=== PATIENT | male | born 1975 | race Caucasian/White ===

== ENCOUNTER 2019-11-20 08:00 | Day surgery (SDC) | payer OTHER ==
[~2019-11-20 08:00] MED LIST: cefTRIAXone 2 GM VIAL ONE
[2019-11-20] MEDS ORDERED: BUPIVACAINE 0.25% PF 30 ML VIAL ONE (08:19)
[2019-11-20] MEDS ORDERED: EPINEPHrine 1 MG/ML AMP ONE (08:19)
[2019-11-20] MEDS ORDERED: LACTATED RINGERS 1,000 ML IV ONE ×2 (08:35→14:17)
--- NOTE | 2019-11-20 08:42 | ANESTHESIA ---
Pre-Anesthesia VS, & Labs - Diagnosis right rotator cuff tear, AC joint arthritis - Procedure right shoulder arthroscopy, rotator cuff debridement vs repair, open distal clavicle, open biceps tenodesis Vital Signs: Temp Pulse Resp BP Pulse Ox 35.8 C L 66 18 128/96 H 99 11/20/19 08:10 11/20/19 08:10 11/20/19 08:10 11/20/19 08:10 11/20/19 08:10 Height 6 ft Weight (kg) 89.81 kg - NPO >8 hours Home Medications and Allergies Home Medications: Ambulatory Orders Escitalopram [Lexapro] 10 mg PO DAILY 11/16/19 Methylphenidate HCl [Concerta] 36 mg PO DAILY 11/16/19 Loratadine [Claritin] 10 mg PO DAILY 11/20/19 Escitalopram [Lexapro] 10 mg PO DAILY 11/16/19 Methylphenidate HCl [Concerta] 36 mg PO DAILY 11/16/19 Loratadine [Claritin] 10 mg PO DAILY 11/20/19 Allergies/Adverse Reactions: Allergies Allergy/AdvReac Type Severity Reaction Status Date / Time iodine Allergy Hives Verified 11/16/19 15:51 Anes History & Medical History - Anesthetic History Anesthesia Complications: reports: No previous complications - Medical History Cardiovascular: reports: None Pulmonary: reports: Sleep apnea, CPAP use (Uses every night) Gastrointestinal: reports: None Urinary: reports: None Neuro: reports: None Musculoskeletal: reports: Other Endocrine/Autoimmune: reports: None Blood Disorders: reports: None Skin: reports: None Smoking Status: Former smoker (quit 1 year ago.) Psychosocial: reports: Alcohol (alcoholism, quit 3 yrs ago.) - Surgical History General: Other ([facility]) Orthopedic: Shoulder arthroplasty (distal biceps left arm, left clavicle fixation) Exam General: Alert, Oriented x3, Cooperative Dental: WNL, Other (prominent incisors) Mouth Openin Fingerbreadth Neck Mobility: Normal Mallampati classification: I Thyromental Distance: 4-6 cm Respiratory: Lungs clear, Normal breath sounds, No respiratory distress, No accessory muscle use Cardiovascular: Regular rate, Normal S1, Normal S2, No murmurs Mental/Cognitive Status: Alert/Oriented X3, Normal for patient Plan Anesthesia Type: General, Interscalene Block (Right) Regional Block: Per Surgeon's request for Post Op pain control Consent for Procedure(s) Verified and Reviewed: Yes Code Status: Attempt Resuscitation ASA classification: 2-Mild systemic disease Is this case an emergency?: No
[2019-11-20] MEDS ORDERED: ROCURONIUM 50 MG/5 ML VIAL IVP ONE (09:30)
[2019-11-20] MEDS ORDERED: LIDOCAINE-MPF 2% 5 ML VIAL IM ONE (09:30)
[2019-11-20] MEDS ORDERED: ONDANSETRON 4 MG/2 ML VIAL IVP ONE (09:30)
[2019-11-20] MEDS ORDERED: MIDAZOLAM 2 MG/2 ML VIAL IVP ONE (09:30)
[2019-11-20] MEDS ORDERED: PROPOFOL 200 MG/20 ML VIAL IVP ONE (09:30)
[2019-11-20] MEDS ORDERED: fentaNYL 100 MCG/2 ML VIAL IVP ONE (09:30)
[2019-11-20] MEDS ORDERED: BUPIVACAINE 0.25% PF 30 ML VIAL SUBQ ONE (11:07)
[2019-11-20] MEDS ORDERED: KETOROLAC 30 MG/ML VIAL ONE (14:50)
[2019-11-20] MEDS ORDERED: ONDANSETRON 4 MG/2 ML VIAL ONE (14:51)
--- NOTE | 2019-11-20 14:54 | IMMEDIATE POSTOPERATIVE NOTE ---
Immediate Postoperative Note - Procedure Note Procedure Date: 11/20/19 Pre-Op Diagnosis: Right shoulder SLAP tear, Cuff Tear, AC joint arthritis Procedure: Right shoulder arthroscopy, SLAP debridement, subacromial decompression, rotator cuff repair, open biceps tenodesis, open distal clavicle excision Post-Op Diagnosis: Right shoulder SLAP tear, Cuff Tear, AC joint arthritis Primary Surgeon: CULLEN HENDERSON Aging Box Hand: MAHAD LEMUS Anesthesia Type: General ET tube, Regional block Findings: Type II SLAP tear, anterior full thickness rotator cuff tear, subacromial bursitis, AC joint arthritis Complications: No complications Estimated Blood Loss (in cc): 50 Drains, Catheters, Devices: None Specimens and Cultures: None Plan of Care: Discharge from [facility] when criteria met Start pendulums POD#1, otherwise arm in sling or resting in lap F/U 7-10 days Start PT at first F/U
[2019-11-20] MEDS ORDERED: oxyCODONE 5 MG TABLET PO PRN (14:56)
[2019-11-20] MEDS ORDERED: ONDANSETRON 4 MG/2 ML VIAL IVP PRN (14:56)
[2019-11-20 16:54] VITALS: BP 164/86
--- NOTE | 2019-11-20 17:36 | OPERATIVE REPORT ---
Operative Report - Other Other Information/Narrative: Date of Procedure: 20 November 2019 Planned Procedure: Right shoulder arthroscopy, subacromial decompression, rotator cuff debridement versus repair, SLAP debridement and open subpectoral biceps tenodesis, open distal clavicle excision Pre-op diagnosis: Right shoulder rotator cuff tendinitis and likely full- thickness anterior rotator cuff tear, SLAP tear, AC joint arthritis Procedure performed: Right shoulder arthroscopy, subacromial decompression, rotator cuff repair, SLAP debridement and open subpectoral biceps tenodesis, open distal clavicle excision Post-op diagnosis: Right shoulder subacromial bursitis, anterior rotator cuff tendon tear (full-thickness), type II SLAP tear, AC joint arthritis Primary Surgeon: CULLEN HENDERSON Secondary Surgeon: MAHAD LEMUS Anesthesia: General endotracheal anesthesia with regional block EBL: 50 ml Tourniquet: Not applicable DETAILED PROCEDURE: IMPLANTS: Arthrex 5.5 mm corkscrew x1, Arthrex 4.75 mm swivel lock x1, Arthrex fiber tack x1 POSTOPERATIVE PLAN: 0-2 weeks-Sling at all times. Pendulum exercises 5 times per day. 2-6 weeks-Passive range of motion with the following limits: FF to 90, ER to 45, abduction to 90 6-12 weeks-Active range of motion in all planes without limitation. Isometric rotator cuff strengthening is allowed 12-16 weeks-Gradually increase strengthening 16 weeks and beyond-Introduce dynamic activities EXAMINATION UNDER ANESTHESIA: ROM: Forward flexion 180 degrees, abduction 180 degrees, external rotation 60 degrees. AB ER 90 degrees AB IR 85 degrees Anterior load and shift: 1+ Posterior load and shift: 1+ Inferior sulcus: Negative ARTHROSCOPIC FINDINGS: Rotator interval: Fraying and tearing within the rotator interval, this tear progressed posteriorly into the anterior portion of the supraspinatus tendon Biceps tendon & SLAP: Type II SLAP lesion Subscapularis: Superior border intact with some yefri-insertional fraying Rotator Cuff: Full-thickness tear anterior portion of the supraspinatus with extension into the rotator interval as above. The infraspinatus appeared intact. There is a small partial articular sided supraspinatus tear seen from within the joint, with about 5 mm of retraction from the chondral surface HAGL: None Labrum: Some degenerative fraying anteriorly, but otherwise intact Glenoid Cartilage: Overall normal Humeral Head Cartilage: Overall normal INDICATION FOR SURGERY: 44-year-old [id number] male with approximately 1-1/2 years of atraumatic right shoulder pain. MRI and exam consistent with partial to full-thickness anterior rotator cuff tear, SLAP tear, and AC joint arthritis. Nonoperative managment failed to resolve symptoms. The risks, benefits, and alternatives were discussed. Risks included pain, bleeding, infection, damage to nearby structures, lack of symptom relief, implant complications, stiffness, need for further surgeries, DVT, PE, stroke, and even . He signed a written consent form. PROCEDURE IN DETAIL: The patient was met in the preoperative holding on the day of the procedure. Operative extremity was signed. Consent was verified. He desired to proceed. Regional anesthesia was obtained in the preoperative area. They were brought to the operating room and surrendered to anesthesia. Once general anesthesia was obtained they were placed in the lateral decubitus position with the operative side up. An axillary roll was placed and all bony prominences were well-padded. They were then prepped and draped in the standard sterile fashion. A surgical timeout was held to confirm the patient procedure, identity, procedure, laterality, allergies, images, and antibiotics. All were in agreement we proceeded. Balanced suspension was applied and a standard diagnostic arthroscopy was performed utilizing posterior and anterosuperolateral portal sites. The ASL portal site was created under direct visualization. The findings of the diagnostic arthroscopy can be found above. The biceps tendon was cut with a biter, and the remnant tissue was debrided back to the superior labrum using the arthroscopic sucker shaver. Any loose labral tissue was debrided from the SLAP tear. The area of torn rotator cuff tissue was marked with an 0 PDS through percutaneous spinal needle. The instruments and cannula were then removed from the glenohumeral joint. The scope trocar was placed in the posterior portal and the acromion was felt. It was then inserted just under the acromion scraping along the bone until the CA ligament was felt. The scope trocar was then brought just lateral to the CA ligament and out the anterior incision. The cannula was then brought over the scope trocar arthroscope were inserted. The arthroscope was backed up until the shaver and arthroscope in the subacromial space. I then systemically debrided the bursa using a sucker shaver and radiofrequency ablation wand. Care was taken to keep the deltoid fascia intact. 3 lateral portals were made under needle localization to facilitate viewing and instrument passage for the rotator cuff repair. The rotator cuff was then evaluated, there was a full-thickness tear of the anterior aspect of the supraspinatus tendon, which abutted the rotator interval. The rotator cuff tissue was debrided back to a stable rim. The rotator cuff footprint was debrided with a bur down to bleeding bone. A cuff grasper was used to ensure that the tissue was adequately mobilized and able to be reduced. A punch was used for 4.75 mm corkscrew, however upon insertion, the sheared off and had to be removed. The corkscrew was upsized to a 5.5, and the same hole was re-punched using the appropriate punch. The hole was then tapped, and a double loaded 5.5 mm corkscrew was inserted. The fast pass scorpion was used to sequentially pass the sutures through the rotator cuff tissue from anterior to posterior. These 4 sutures were then brought laterally to a 4.75 mm swivel lock which was placed in standard fashion. The cuff and reduce down nicely. Final pictures in the subacromial space were obtained, and then the camera and instruments were removed from the shoulder. We next turned our attention to the biceps tenodesis. A 5 cm incision was made near the axillary fold centered over the pectoralis major tendon. Electrocautery was used to obtain hemostasis. The fascia was opened with dissection scissors. Blunt digital dissection was used to identify the intertubercular groove just under the pectoralis major tendon. The long head of the biceps tendon was visualized within this interval. With digital palpation, I was able to deliver the tendon of the long head of the biceps out of the wound. A duval elevator was then used to debride all synovial tissue from the intertubercular groove. A fibertack was placed high within the groove. Both limbs of the fibertack were pulled on and it was well fixed. I then whipstitched the biceps tendon starting 2 cm proximal to the musculotendinous junction down to the musculotendinous junction and back up to the same 2 cm location with a single limb of the suture tack. The other suture was placed once through the tendon at the 2 cm location. I then cut all excess tendon off. The suture limb that was passed the single time was then pulled on and this reduced the tendon nicely into the groove. The elbow was fully straightened and there was no excess tension on the repair site. I then tied 7 reverse half hitches alternating to secure the tendon in its place. The wound was then irrigated copiously. We then turned our attention to the distal clavicle. A 5 cm incision was made in line with the clavicle, centered around the acromioclavicular joint. Electrocautery was used to obtain hemostasis. Full-thickness skin flaps were made at the level of the fascia/joint capsule. A full-thickness cut was made in line with the skin incision to open the acromioclavicular joint. Electrocautery was used to dissect the joint capsule from the bony surfaces. 2 Homans were placed around the distal clavicle. Rongeur was used to debride the intra- articular disc. An 6 mm resection was measured and performed with a sagittal saw. Care was taken to ensure this cut was parallel to the joint surface. A finger was placed with into the defect and the arm was adducted fully without any impingement in the joint. The joint was then irrigated copiously. A watertight capsular and fascial closure was performed with 0 Vicryl. Subcutaneous incisions were closed with interrupted 2-0 Vicryl followed by running 3-0 Monocryl. The portal sites were then closed with 3-0 Monocryl buried. Mastisol and Steri-Strips were applied. 10 mL of quarter percent Marcaine plain was injected around the biceps tendon incision. A sterile dressing and a sling was applied. He was awakened and transferred to the recovery room.
== END 2019-11-20 08:01 | disposition home or self-care (01) ==
LOC: SDS 08:00
PROVIDERS: ATTEND Orthopaedic Surgery
DX: M75.101 Unspecified rotator cuff tear or rupture of right shoulder, not specified as traumatic (principal); S43.431A Superior glenoid labrum lesion of right shoulder, initial encounter; M19.011 Primary osteoarthritis, right shoulder; M75.51 Bursitis of right shoulder; G47.33 Obstructive sleep apnea (adult) (pediatric); Z87.891 Personal history of nicotine dependence